=== PATIENT | male | born 1980 | race Caucasian/White ===

== ENCOUNTER → 2019-11-18 11:32 | Outpatient (CLI) | payer MEDICARE, OTHER, SELFPAY ==
--- NOTE | 2019-11-18 11:46 | XR_ITS ---
PROCEDURE: XR FOOT RT MIN 3V CLINICAL INDICATION: RT FOOT INJURY Posttraumatic pain COMPARISON: No exams were available for comparison FINDINGS: No fracture or dislocation. No lytic or blastic change. There is normal mineralization. The joint spaces are well-preserved. No significant degenerative/arthritic changes. No erosive changes evident. Other findings:Small sclerotic foci in the calcaneus consistent bone islands. Small 3 mm cystic area in the shaft of the 1st metatarsal nonspecific IMPRESSION: No acute findings. Dictated by: Adrián Vega MD 11/18/2019 12:32 Electronically signed by Adrián Vega MD in [place] 11/18/2019 12:32
== END ==
PROVIDERS: PCP Nurse Practitioner Family; Visit Provider Nurse Practitioner Family
DX: S99.921A Unspecified injury of right foot, initial encounter (principal)
CPT/HCPCS: 73630

== ENCOUNTER 2020-05-11 13:03 | Emergency (ER) | payer MEDICARE, OTHER, SELFPAY ==
[2020-05-11 13:04] VITALS: BP 150/90; PULSE 89; RESP 16; TEMP 37.1; O2SAT 98; BMI 34.5
--- NOTE | 2020-05-11 13:40 | [facility].EDGENADL ---
ED Disposition Clinical Impression: Laceration of right hand Qualifiers: Encounter type: initial encounter Foreign body presence: without foreign body Qualified Code(s): S61.411A - Laceration without foreign body of right hand, initial encounter Chest wall contusion Qualifiers: Encounter type: initial encounter Laterality: unspecified laterality Qualified Code(s): S20.219A - Contusion of unspecified front wall of thorax, initial encounter Abdominal wall contusion Qualifiers: Encounter type: initial encounter Qualified Code(s): S30.1XXA - Contusion of abdominal wall, initial encounter Disposition: Home, Self-Care Condition on Discharge: Good Instructions: DI for Laceration Repair Additional Instructions: May take bandage and splint off daily and wash wound with soap and water, reapply bandage and splint. Clindamycin as prescribed. Follow-up with orthopedics, Dr. Mcgowan, next week for laceration and for cystic changes and bones of hand. Call Thursday to make appointment. Follow-up with your primary care doctor for abnormal findings on CT scan of the abdomen. Additional instructions for HAND LACERATION: Clean the wound daily with soap and water. Avoid submerging the wound. No swimming.DO NOT USE any antibiotic ointment such as Neosporin, Polysporin, or triple antibiotic. This will delay healing. See your primary care physician or return to the [facility] in 10 days for suture removal. The [facility] is open1 PM to 9 PM 7 days a week. Return if any signs of infection including increasing pain, pus drainage, swelling, redness, red streaks, or fever. Prescriptions: clindamycin HCL [Clindamycin HCl 300mg Cap] 300 mg PO Q6 #28 cap Transmission Status: Received by [facility] Referrals: Bridgette Jorgensen APRN [Primary Care Provider] - - Critical Care Critical Care Time: No Attestation: On , the high probability of a clinically significant, sudden or life threatening deterioration of the following system(s) required my full and direct attention, intervention and personal management. The time I documented below is in addition to time spent performing reported procedures but includes the following listed in this critical care notation. Medical Decision Making - Agus Inquiry Pt receiving controlled substance: No Vital Signs: 05/11/20 13:04 05/11/20 16:56 Temperature 98.8 F 98 F Temperature Source Oral Oral Pulse Rate 78 Pulse Rate [Left Radial] 89 Respiratory Rate 16 16 Blood Pressure 123/74 Blood Pressure [Right Arm] 150/90 H Blood Pressure Mean [Right Arm] 110 Blood Pressure Position Sitting Blood Pressure Position [Right Arm] Sitting 02 Sat by Pulse Oximetry 98 Oxygen Delivery Method Room Air Room Air - Lab Data Lab results reviewed: Yes: I reviewed the patient's lab results. Lab Results 05/11/20 14:20: WBC 9.3, RBC 4.35 L, Hgb 13.6 L, Hct 40.4 L, MCV 93.0, MCH 31.2, MCHC 33.6, RDW 13.8, Plt Count 295, MPV 7.8, Neut % (Auto) 75.8, Lymph % (Auto) 12.3, [place] % (Auto) 8.5, Eos % (Auto) 3.1, Baso % (Auto) 0.4, Neut # (Auto) 7.1, Lymph # (Auto) 1.1, [place] # (Auto) 0.8, Eos # (Auto) 0.3, Baso # (Auto) 0.0 05/11/20 14:20: Sodium 139, Potassium 5.1, Chloride 102, Carbon Dioxide 29, Anion Gap 13.1, BUN 18, Creatinine 1.00, Estimated Creat Clear 123, Estimated GFR 83, Est GFR ( Amer) 100, Glucose 217 H, Calcium 9.3, Total Bilirubin 0.4, AST 49, ALT 43, Alkaline Phosphatase 132 H, Total Protein 7.2, Albumin 4.4, Globulin 2.8, Albumin/Globulin Ratio 1.6 05/11/20 15:30: Urine Color Yellow, Urine Appearance Clear, Urine pH 7.0, Ur Specific [place] 1.020, Urine Protein Negative, Urine Glucose (UA) 2+, Urine Ketones Negative, Urine Blood Negative, Urine Nitrate Negative, Urine Bilirubin Negative, Urine Urobilinogen 0.2, Ur Leukocyte Esterase Negative, Urine RBC None, Urine WBC None, Ur Squamous Epith Cells None, Urine Bacteria None Result diagrams: 05/11/20 14:20 08
--- NOTE | 2020-05-11 13:54 | CT_ITS ---
PROCEDURE: CT ABDOMEN PELVIS W CON CLINICAL INDICATION: trauma Blunt trauma with injury and pain, contusion/abrasion or hematoma following injury Left upper quadrant pain COMPARISON: No exams were available for comparison TECHNIQUE: IV Contrast: 50ml Optiray 350 Oral Contrast None Axial images obtained with sagittal and coronal reformats. All CT scans at the facility use one or more dose reduction, viz: automated exposure control, ma/kV adjustment per patient size (including targeted exams where dose is matched to indication, i.e. head), or iterative reconstruction technique. FINDINGS: There is severe levoscoliosis of the lumbar spine with a rotary component. No acute lower rib fracture is evident. The liver and spleen has an unremarkable appearance. The right adrenal gland is slightly enlarged containing a coarse calcification with the gland measuring 2 x 1.2 cm. Left adrenal gland is unremarkable. Nonobstructing 2 mm stone is noted in the upper pole of the left kidney. No hydronephrosis. No evidence of appendicitis. No intestinal obstruction or free air. No pelvic mass or abnormal fluid collection. No evidence of intra-abdominal hematoma. Severe lumbar scoliosis convex left with rotary component is noted with multilevel degenerative changes of the spine. There is 8 mm anterolisthesis of L5 on S1. No acute bony fractures are evident. 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 There is extensive increase in soft tissue density in the retroperitoneum beginning at the aortic hiatus and extending inferiorly to the lumbosacral junction. This is more pronounced on the left with some coarse calcification in the left retroperitoneum. This increased density somewhat obscures the posterior aspect of the aorta, inferior vena cava, and iliac vessels. This is centered more toward the left ileo psoas muscle on the left but does extend across the midline posterior to the aorta and inferior vena cava in the prevertebral soft tissues. Etiology is uncertain but could be inflammatory/infectious, or neoplastic. There are no previous exams available for comparison. This area measures approximately 8.3 by 6.9 cm AP and transverse at the level just superior to the iliac crest. IMPRESSION: 1. No acute fracture. 2. Severe lumbar scoliosis convex left with rotary component 3. Retroperitoneal soft tissue mass centrally and on the left with coarse calcification with the greatest involvement in the region of the ileo psoas muscle. Neoplasm such as retroperitoneal sarcoma would be considered and infectious or inflammatory process is also consideration. No bony destructive process however is evident. Please correlate with old studies if available. Dictated b Adrián Vega MD 05/11/2020 16:03 Adrián Vega MD in [place] 05/11/2020 16:03
--- NOTE | 2020-05-11 13:55 | XR_ITS ---
PROCEDURE: XR CHEST 2V CLINICAL HISTORY: injury Chest pain following injury COMPARISON: No exams were available for comparison FINDINGS: The cardiomediastinal silhouette and pulmonary vascularity are within normal limits. There is mild left apical pleural thickening nonspecific. No pneumothorax or other some acute anomaly. Severe lumbar scoliosis convex left with mild thoracic scoliosis convex right. No acute bony findings. IMPRESSION: No acute findings. Dictated b Adrián Vega MD 05/11/2020 15:19 Adrián Vega MD in [place] 05/11/2020 15:19
--- NOTE | 2020-05-11 13:55 | XR_ITS ---
PROCEDURE: XR HAND RT MIN 3V CLINICAL INDICATION: injury Posttraumatic pain COMPARISON: No exams were available for comparison FINDINGS: No obvious fracture or dislocation. There is a mixed sclerotic and lucent area involving the distal shaft of the 3rd metacarpal. This is nonspecific and could be due to an enchondroma. This area measures 2.4 cm in length. There is also a lucency at 5 mm involving the proximal and radial aspect of the middle phalanx of the 3rd finger. A small sclerotic focus involves the distal aspect of the radius along the ulnar margin IMPRESSION: 1. No acute fracture. 2. Mixed sclerotic and lucent lesion of the distal aspect of the 3rd metacarpal. This could be due to an enchondroma. Other etiologies not excluded 3. 5 mm cystic area proximal aspect of the middle phalanx of the 3rd digit 4. Recommend follow-up to confirm stability Dictated b Adrián Vega MD 05/11/2020 15:37 Adrián Vega MD in [place] 05/11/2020 15:37
[2020-05-11 14:31] LABS: Basophils % 0.4 % (0.1-2.0); Eosinophils # 0.3 K/mm3 (0.0-0.4); Eosinophils % 3.1 % (0.1-12.0); Hematocrit 40.4 % (42.0-52.0); Hemoglobin 13.6 g/dL (14.1-18.0); Lymphocytes # 1.1 K/mm3 (0.7-4.5); Lymphocytes % 12.3 % (10-50); Mean Corpuscular HGB Conc 33.6 g/dL (31.8-35.4); Mean Corpuscular Hemoglobin 31.2 pg (27.0-31.2); Mean Platelet Volume 7.8 fl (7.4-10.4); Monocytes # 0.8 K/mm3 (0.1-1.0); Monocytes % 8.5 % (1.7-9.3); Neutrophils # 7.1 K/mm3 (1.8-7.8); Neutrophils % 75.8 % (37.0-80.0); Platelet Count 295 K/mm3 (142-424); Red Blood Count 4.35 M/mm3 (4.60-6.20); Red Cell Distribution Width 13.8 % (11.5-17.5); White Blood Count 9.3 K/mm3 (4.8-10.8)
[2020-05-11 14:39] LABS: Alanine Aminotransferase 43 U/L (12-78); Albumin Level 4.4 g/dl (3.5-5.0); Albumin/Globulin Ratio 1.6 (1.1-1.8); Alkaline Phosphatase 132 U/L (38-126); Anion Gap 13.1 mEq/L (5-15); Aspartate Amino Transferase 49 U/L (17-59); Bilirubin,Total 0.4 mg/dl (0.2-1.3); Blood Urea Nitrogen 18 mg/dl (9-20); Calcium 9.3 mg/dl (8.4-10.2); Carbon Dioxide 29 mmol/L (22.0-30.0); Chloride 102 mmol/L (98-107); Creatinine Clearance Estimated 123 mL/min (50-200); Estimated Glomerular Filt Rate 83 ml/min (>60); GFR (African American) 100 ML/MIN (>60); Globulin 2.8 g/dL (1.3-3.2); Glucose 217 mg/dl (74-100); Potassium 5.1 mmoL/L (3.5-5.1); Sodium 139 mmol/L (136-145); Total Protein,Serum 7.2 g/dl (6.3-8.2)
[2020-05-11 15:46] LABS: Microscopic, Urine URINE MICROSCOPIC (MICROSCOPIC)
[2020-05-11 15:48] LABS: Appearance,Urine CLEAR (Clear); Bilirubin,Urine Negative (Negative); Blood, Urine Negative (Negative); Color,Urine YELLOW (Yellow); Glucose,Urine (UA) 2+ (Negative); Ketones,Urine Negative (Negative); Leukocyte Esterase,Urine Negative (Negative); Nitrate,Urine Negative (Negative); Protein,Urine Negative (Negative); Urobilinogen,Urine 0.2 EU/dl (0.2)
--- NOTE | 2020-05-11 16:55 | PC.NURSE ---
dsd applied to rt hand. finger splint applied to rt index finger
[2020-05-11 16:56] VITALS: BP 123/74; PULSE 78; RESP 16; TEMP 36.6; O2SAT 98
== END 2020-05-11 16:57 | disposition home or self-care (01) ==
PROVIDERS: Emergency Provider Emergency Medicine; PCP Nurse Practitioner Family
DX: S61.411A Laceration without foreign body of right hand, initial encounter (principal); S20.219A Contusion of unspecified front wall of thorax, initial encounter; W37.8XXA Explosion and rupture of other pressurized tire, pipe or hose, initial encounter; Y92.89 Other specified places as the place of occurrence of the external cause; I10 Essential (primary) hypertension; K21.9 Gastro-esophageal reflux disease without esophagitis; E78.5 Hyperlipidemia, unspecified; E04.9 Nontoxic goiter, unspecified; Z79.899 Other long term (current) drug therapy; Z88.0 Allergy status to penicillin; Z88.2 Allergy status to sulfonamides
CPT/HCPCS: 12002; 71046; 73130; 74177; 80053; 81001; 85025; 99283; Q9967

== ENCOUNTER → 2020-08-17 09:44 | Outpatient (CLI) | payer MEDICARE, OTHER, SELFPAY ==
--- NOTE | 2020-08-17 09:48 | XR_ITS ---
PROCEDURE: XR HAND RT MIN 3V CLINICAL INDICATION: RT hand pain COMPARISON: CR XR HAND RT MIN 3V from 05/11/2020 FINDINGS: No fracture or dislocation. No lytic or blastic change. There is normal mineralization. The joint spaces are well-preserved. No significant degenerative/arthritic changes. Again noted is the combined sclerotic and radiolucent lesion involving the distal shaft and head of the 3rd metacarpal. This could be an enchondroma, fibrous dysplasia is a possibility as well. There also is a small radiolucent cystic-appearing lesion at the base of the middle phalanx of the middle finger. The carpal bones appear intact. IMPRESSION: Stable curious sclerotic and radiolucent lesion 3rd metacarpal, no acute fracture seen Dictated by: Dr. Geoffrey Gordon MD 08/17/2020 10:23 Dr. Geoffrey Gordon MD in [place] 08/17/2020 10:23
== END ==
PROVIDERS: PCP Nurse Practitioner Family; Visit Provider Orthopaedic Surgery
DX: S61.411A Laceration without foreign body of right hand, initial encounter (principal)
CPT/HCPCS: 73130

== ENCOUNTER → 2021-01-11 08:31 | Outpatient (CLI) | payer MEDICARE, OTHER, SELFPAY ==
--- NOTE | 2021-01-11 08:36 | XR_ITS ---
PROCEDURE: XR HAND RT MIN 3V CLINICAL INDICATION: RT hand pain COMPARISON: CR XR HAND RT MIN 3V from 05/11/2020 CR XR HAND RT MIN 3V from 08/17/2020 FINDINGS: No acute fracture or dislocation. The joint spaces are well-preserved. No significant degenerative/arthritic changes. No erosive changes evident. Other findings:There has been no significant change in the mixed lytic and sclerotic lesion involving the distal and mid aspect of the 3rd metacarpal and no change in the cystic lesion involving the proximal aspect of the middle phalanx of the 3rd digit. Bone island is present involving the distal radius. IMPRESSION: No change with no acute finding. No change in the mixed sclerotic and lytic lesion of the 3rd metacarpal and the cystic lesion of the middle phalanx of the 3rd digit Dictated by: Adrián Vega MD 01/11/2021 09:09 Adrián Vega MD in [place] 01/11/2021 09:09
== END ==
PROVIDERS: PCP Nurse Practitioner Family; Visit Provider Orthopaedic Surgery
DX: D16.9 Benign neoplasm of bone and articular cartilage, unspecified (principal)
CPT/HCPCS: 73130

== ENCOUNTER → 2022-06-25 06:58 | Outpatient (CLI) | payer MEDICARE, OTHER, SELFPAY ==
[2022-06-25 19:04] LABS: Basophils # 0.1 K/mm3 (0-0.2); Basophils % 1.4 % (0.1-2.0); Eosinophils # 0.3 K/mm3 (0.0-0.4); Hematocrit 44.8 % (42.0-52.0); Hemoglobin 14.2 g/dL (14.1-18.0); Lymphocytes # 1.1 K/mm3 (0.7-4.5); Lymphocytes % 14.8 % (10-50); Mean Corpuscular HGB Conc 31.7 g/dL (31.8-35.4); Mean Corpuscular Hemoglobin 30.2 pg (27.0-31.2); Mean Corpuscular Volume 95.2 fl (80-94); Mean Platelet Volume 9.6 fl (7.4-10.4); Monocytes # 0.6 K/mm3 (0.1-1.0); Monocytes % 7.8 % (1.7-9.3); Neutrophils # 5.5 K/mm3 (1.8-7.8); Neutrophils % 71.9 % (37.0-80.0); Platelet Count 375 K/mm3 (142-424); Red Blood Count 4.71 M/mm3 (4.60-6.20); Red Cell Distribution Width 14.2 % (11.5-17.5); White Blood Count 7.7 K/mm3 (4.8-10.8)
[2022-06-25 19:17] LABS: Alanine Aminotransferase 27 U/L (12-78); Albumin Level 4.3 g/dl (3.5-5.0); Albumin/Globulin Ratio 1.7 (1.1-1.8); Alkaline Phosphatase 160 U/L (38-126); Anion Gap 18.7 mEq/L (5-15); Aspartate Amino Transferase 34 U/L (17-59); Bilirubin,Total 0.6 mg/dl (0.2-1.3); Blood Urea Nitrogen 18 mg/dl (9-20); Calcium 9.2 mg/dl (8.4-10.2); Carbon Dioxide 23 mmol/L (22.0-30.0); Chloride 104 mmol/L (98-107); Chol/HDL Ratio 4.4 (1-3.5); Cholesterol 118 mg/dl (140-200); Estimated Glomerular Filt Rate 106 ml/min (>60); GFR (African American) 128 ML/MIN (>60); Globulin 2.6 g/dL (1.3-3.2); Glucose 132 mg/dl (74-100); HDL Cholesterol 27 mg/dl (40-60); Potassium 4.7 mmoL/L (3.5-5.1); Sodium 141 mmol/L (136-145); Total Protein,Serum 6.9 g/dl (6.3-8.2); Triglycerides 123 mg/dl (30-150); VLDL Cholesterol 25 mg/dL (0-40)
[2022-06-25 19:28] LABS: Direct LDL Cholesterol 64.17 mg/dL (100-129)
[2022-06-25 19:30] LABS: Hemoglobin A1C 7.3 % (4.0-6.0)
[2022-06-25 19:47] LABS: Thyroid Stimulating Hormone 1.35 uIU/mL (0.465-4.68)
== END ==
PROVIDERS: PCP Family Medicine; Visit Provider Family Medicine
DX: E11.9 Type 2 diabetes mellitus without complications (principal); L60.3 Nail dystrophy; Z79.4 Long term (current) use of insulin
CPT/HCPCS: 80053; 80061; 83036; 84443; 85025

== ENCOUNTER → 2022-11-05 18:47 | Outpatient (CLI) | payer MEDICARE, OTHER, SELFPAY ==
[2022-11-05 22:07] LABS: Amphetamine/Metha Screen,Urine Negative ng/ml (<1000); Barbiturates Screen,Urine Negative ng/ml (<200)
[2022-11-05 22:08] LABS: Benzodiazepines Screen,Urine Negative ng/ml (<200); Microalbumin/Creatinine Ratio 24.3
[2022-11-05 22:09] LABS: Cannabinoid Screen,Urine Negative ng/ml (<50); Cocaine Screen,Urine Negative ng/ml (<300)
[2022-11-05 22:10] LABS: Methadone Screen,Urine Negative ng/ml (<300); Opiate Screen,Urine Negative ng/ml (<300)
[2022-11-05 22:11] LABS: Phencyclidine Screen,Urine Negative ng/ml (<25)
[2022-11-05 22:14] LABS: Creatinine,Urine Random 213 mg/dL (Not Estab.)
== END ==
PROVIDERS: PCP Family Medicine; Visit Provider Family Medicine
DX: E11.9 Type 2 diabetes mellitus without complications (principal); G89.29 Other chronic pain; Z79.4 Long term (current) use of insulin
CPT/HCPCS: 80305; 82043; 82570

== ENCOUNTER → 2023-05-06 09:55 | Outpatient (CLI) | payer MEDICARE, OTHER, SELFPAY ==
[2023-05-06 16:36] LABS: Basophils % 0.2 % (0.1-2.0); Eosinophils # 0.3 K/mm3 (0.0-0.4); Eosinophils % 3.8 % (0.1-12.0); Hematocrit 46.6 % (42.0-52.0); Hemoglobin 14.9 g/dL (14.1-18.0); Mean Corpuscular Hemoglobin 29.5 pg (27.0-31.2); Mean Corpuscular Volume 92.3 fl (80-94); Mean Platelet Volume 8.8 fl (7.4-10.4); Monocytes # 0.6 K/mm3 (0.1-1.0); Monocytes % 7.2 % (1.7-9.3); Neutrophils # 6.1 K/mm3 (1.8-7.8); Neutrophils % 76.8 % (37.0-80.0); Platelet Count 329 K/mm3 (142-424); Red Blood Count 5.05 M/mm3 (4.60-6.20); Red Cell Distribution Width 14.4 % (11.5-17.5)
[2023-05-06 16:49] LABS: Alanine Aminotransferase 22 U/L (12-78); Albumin Level 4.5 g/dl (3.5-5.0); Albumin/Globulin Ratio 1.8 (1.1-1.8); Alkaline Phosphatase 95 U/L (38-126); Aspartate Amino Transferase 23 U/L (17-59); Bilirubin,Total 0.4 mg/dl (0.2-1.3); Blood Urea Nitrogen 17 mg/dl (9-20); Calcium 9.7 mg/dl (8.4-10.2); Carbon Dioxide 29 mmol/L (22.0-30.0); Chloride 104 mmol/L (98-107); Chol/HDL Ratio 3.5 (1-3.5); Cholesterol 88 mg/dl (140-200); Estimated Glomerular Filt Rate 92 ml/min (>60); GFR (African American) 111 ML/MIN (>60); Globulin 2.5 g/dL (1.3-3.2); Glucose 127 mg/dl (74-100); HDL Cholesterol 25 mg/dl (40-60); Sodium 143 mmol/L (136-145); Triglycerides 101 mg/dl (30-150); VLDL Cholesterol 20 mg/dL (0-40)
[2023-05-06 17:00] LABS: Direct LDL Cholesterol 44.33 mg/dL (100-129)
[2023-05-06 17:19] LABS: Thyroid Stimulating Hormone 2.75 uIU/mL (0.465-4.68)
[2023-05-06 18:48] LABS: Hemoglobin A1C 6.7 % (4.0-6.0)
== END ==
PROVIDERS: PCP Family Medicine; Visit Provider Family Medicine
DX: E03.9 Hypothyroidism, unspecified (principal); E11.9 Type 2 diabetes mellitus without complications; E78.5 Hyperlipidemia, unspecified; G47.33 Obstructive sleep apnea (adult) (pediatric); I10 Essential (primary) hypertension; L60.3 Nail dystrophy; M41.9 Scoliosis, unspecified; Z85.858 Personal history of malignant neoplasm of other endocrine glands; I25.10 Atherosclerotic heart disease of native coronary artery without angina pectoris; Z79.4 Long term (current) use of insulin
CPT/HCPCS: 80053; 80061; 83036; 84443; 85025

== ENCOUNTER → 2023-05-27 11:26 | Outpatient (CLI) | payer MEDICARE, OTHER, SELFPAY ==
--- NOTE | 2023-05-27 11:30 | XR_ITS ---
FINAL REPORT CLINICAL HISTORY: left foot pain COMPARISON: 11/18/2019 FINDINGS: Left foot Three views were obtained. There is no acute fracture or dislocation. The joint spaces appear normal. There is an incidental lucency in the distal 1st metatarsal, stable since prior. No soft tissue abnormality is identified. IMPRESSION: No acute process. Reviewed, Interpreted and Dictated by Yasir Pruitt MD Transcribed by Latisha Melvin Authenticated and [facility]
== END ==
PROVIDERS: PCP Family Medicine; Visit Provider Family Medicine
DX: M79.672 Pain in left foot (principal)
CPT/HCPCS: 73630

== ENCOUNTER → 2023-09-08 23:13 | Outpatient (CLI) | payer MEDICARE, OTHER, SELFPAY ==
[2023-09-08 18:13] LABS: Hemoglobin A1C 6.6 % (4.0-6.0)
[2023-09-09 09:53] LABS: Creatinine,Urine Random 88 mg/dL (Not Estab.)
[2023-09-09 09:59] LABS: Chloride 103 mmol/L (98-107)
[2023-09-09 10:00] LABS: Sodium 140 mmol/L (136-145)
[2023-09-09 10:02] LABS: Blood Urea Nitrogen 19 mg/dl (9-20); Estimated Glomerular Filt Rate 106 ml/min (>60); GFR (African American) 128 ML/MIN (>60)
[2023-09-09 10:03] LABS: Alanine Aminotransferase 24 U/L (12-78); Albumin Level 4.8 g/dl (3.5-5.0); Albumin/Globulin Ratio 1.8 (1.1-1.8); Alkaline Phosphatase 85 U/L (38-126); Anion Gap 15.5 mEq/L (5-15); Aspartate Amino Transferase 24 U/L (17-59); Bilirubin,Total 0.5 mg/dl (0.2-1.3); Calcium 9.7 mg/dl (8.4-10.2); Carbon Dioxide 28 mmol/L (22.0-30.0); Chol/HDL Ratio 3.8 (1-3.5); Cholesterol 99 mg/dl (140-200); Globulin 2.7 g/dL (1.3-3.2); Glucose 211 mg/dl (74-100); HDL Cholesterol 26 mg/dl (40-60); Total Protein,Serum 7.5 g/dl (6.3-8.2); Triglycerides 88 mg/dl (30-150); VLDL Cholesterol 18 mg/dL (0-40)
[2023-09-09 10:17] LABS: Direct LDL Cholesterol 61.93 mg/dL (100-129)
[2023-09-09 10:21] LABS: Free T4 (Free Thyroxine) 1.35 ng/dl (0.78-2.19)
[2023-09-09 10:24] LABS: Microalbumin/Creatinine Ratio 13.4
[2023-09-09 10:28] LABS: Potassium 6.5 mmoL/L (3.5-5.1)
[2023-09-09 11:05] LABS: Thyroid Stimulating Hormone 1.99 uIU/mL (0.465-4.68)
== END ==
PROVIDERS: Nurse Practitioner Family; PCP Family Medicine; Visit Provider Family Medicine
DX: I10 Essential (primary) hypertension (principal); E11.9 Type 2 diabetes mellitus without complications; Z79.4 Long term (current) use of insulin
CPT/HCPCS: 80053; 80061; 82043; 82570; 83036; 84439; 84443

== ENCOUNTER → 2023-09-11 10:15 | Outpatient (CLI) | payer MEDICARE, OTHER, SELFPAY ==
[2023-09-11 11:03] LABS: Blood Urea Nitrogen 16 mg/dl (9-20); Carbon Dioxide 27 mmol/L (22.0-30.0); Chloride 107 mmol/L (98-107); Estimated Glomerular Filt Rate 106 ml/min (>60); GFR (African American) 128 ML/MIN (>60); Sodium 141 mmol/L (136-145)
[2023-09-11 11:14] LABS: Glucose 50 mg/dl (74-100)
== END ==
PROVIDERS: PCP Family Medicine; Visit Provider Family Medicine
DX: E87.5 Hyperkalemia (principal)
CPT/HCPCS: 36415; 80048

== ENCOUNTER 2024-01-07 21:20 | Outpatient (CLI) | payer MEDICARE, OTHER, SELFPAY ==
[2024-01-07 16:31] LABS: Basophils # 0.1 K/mm3 (0-0.2); Basophils % 0.6 % (0.1-2.0); Eosinophils # 0.3 K/mm3 (0.0-0.4); Eosinophils % 3.6 % (0.1-12.0); Hematocrit 47.3 % (42.0-52.0); Hemoglobin 14.9 g/dL (14.1-18.0); Lymphocytes % 13.1 % (10-50); Mean Corpuscular HGB Conc 31.5 g/dL (31.8-35.4); Mean Corpuscular Hemoglobin 30.9 pg (27.0-31.2); Mean Platelet Volume 9.2 fl (7.4-10.4); Monocytes # 0.6 K/mm3 (0.1-1.0); Monocytes % 7.5 % (1.7-9.3); Neutrophils # 5.9 K/mm3 (1.8-7.8); Neutrophils % 75.2 % (37.0-80.0); Platelet Count 294 K/mm3 (142-424); Red Blood Count 4.82 M/mm3 (4.60-6.20); White Blood Count 7.8 K/mm3 (4.8-10.8)
[2024-01-07 16:50] LABS: Alanine Aminotransferase 27 U/L (12-78); Albumin Level 4.9 g/dl (3.5-5.0); Alkaline Phosphatase 98 U/L (38-126); Anion Gap 15.3 mEq/L (5-15); Aspartate Amino Transferase 24 U/L (17-59); Bilirubin,Total 0.5 mg/dl (0.2-1.3); Blood Urea Nitrogen 18 mg/dl (9-20); Calcium 10.1 mg/dl (8.4-10.2); Carbon Dioxide 25 mmol/L (22.0-30.0); Chloride 107 mmol/L (98-107); Chol/HDL Ratio 3.9 (1-3.5); Cholesterol 113 mg/dl (140-200); Estimated Glomerular Filt Rate 105 ml/min (>60); GFR (African American) 127 ML/MIN (>60); Globulin 2.5 g/dL (1.3-3.2); Glucose 155 mg/dl (74-100); HDL Cholesterol 29 mg/dl (40-60); Potassium 4.3 mmoL/L (3.5-5.1); Sodium 143 mmol/L (136-145); Total Protein,Serum 7.4 g/dl (6.3-8.2); Triglycerides 93 mg/dl (30-150); VLDL Cholesterol 19 mg/dL (0-40)
[2024-01-07 17:00] LABS: Direct LDL Cholesterol 62.18 mg/dL (100-129)
[2024-01-07 17:20] LABS: Thyroid Stimulating Hormone 3.43 uIU/mL (0.465-4.68)
== END 2024-01-07 23:59 ==
LOC: LAB.DROPOF 21:21
PROVIDERS: PCP Family Medicine; Visit Provider Family Medicine
DX: E11.9 Type 2 diabetes mellitus without complications (principal); I10 Essential (primary) hypertension; Z79.4 Long term (current) use of insulin; Z79.84 Long term (current) use of oral hypoglycemic drugs
CPT/HCPCS: 80053; 80061; 83036; 84443; 85025

== ENCOUNTER 2024-08-11 09:22 | Outpatient (CLI) | payer MEDICARE, OTHER, SELFPAY ==
[2024-08-11 16:20] LABS: Basophils % 0.6 % (0.1-2.0); Eosinophils # 0.3 K/mm3 (0.0-0.4); Eosinophils % 3.8 % (0.1-12.0); Hematocrit 48.1 % (42.0-52.0); Hemoglobin 16.3 g/dL (14.1-18.0); Lymphocytes # 1.1 K/mm3 (0.7-4.5); Mean Corpuscular HGB Conc 33.8 g/dL (31.8-35.4); Mean Corpuscular Hemoglobin 31.3 pg (27.0-31.2); Mean Corpuscular Volume 92.6 fl (80-94); Mean Platelet Volume 8.8 fl (7.4-10.4); Monocytes # 0.6 K/mm3 (0.1-1.0); Monocytes % 7.4 % (1.7-9.3); Neutrophils # 5.6 K/mm3 (1.8-7.8); Neutrophils % 73.2 % (37.0-80.0); Platelet Count 297 K/mm3 (142-424); Red Cell Distribution Width 13.9 % (11.5-17.5); White Blood Count 7.6 K/mm3 (4.8-10.8)
[2024-08-11 16:44] LABS: Alanine Aminotransferase 18 U/L (12-78); Albumin Level 4.9 g/dl (3.5-5.0); Alkaline Phosphatase 67 U/L (38-126); Anion Gap 18.1 mEq/L (5-15); Aspartate Amino Transferase 32 U/L (17-59); Bilirubin,Total 0.8 mg/dl (0.2-1.3); Blood Urea Nitrogen 19 mg/dl (9-20); Calcium 9.5 mg/dl (8.4-10.2); Carbon Dioxide 24 mmol/L (22.0-30.0); Chloride 105 mmol/L (98-107); Chol/HDL Ratio 3.3 (1-3.5); Cholesterol 91 mg/dl (140-200); Estimated Glomerular Filt Rate 105 ml/min (>60); GFR (African American) 127 ML/MIN (>60); Globulin 2.5 g/dL (1.3-3.2); Glucose 69 mg/dl (74-100); HDL Cholesterol 28 mg/dl (40-60); Potassium 5.1 mmoL/L (3.5-5.1); Sodium 142 mmol/L (136-145); Total Protein,Serum 7.4 g/dl (6.3-8.2); Triglycerides 113 mg/dl (30-150); VLDL Cholesterol 23 mg/dL (0-40)
[2024-08-11 16:55] LABS: Direct LDL Cholesterol 45.93 mg/dL (100-129)
[2024-08-11 17:04] LABS: Hemoglobin A1C 6.4 % (4.0-6.0)
[2024-08-11 17:14] LABS: Thyroid Stimulating Hormone 1.76 uIU/mL (0.465-4.68)
[2024-08-11 19:01] LABS: HIV (1&2) Antibody Rapid NONREACTIVE (NONREACTIVE)
[2024-08-13 08:22] LABS: HCV Ab Non Reactive (Non Reactive)
== END 2024-08-11 23:59 | disposition home or self-care (01) ==
LOC: LAB.DROPOF 08-12 08:13
PROVIDERS: PCP Family Medicine; Visit Provider Family Medicine
DX: E03.9 Hypothyroidism, unspecified (principal); Z11.4 Encounter for screening for human immunodeficiency virus [HIV]; I10 Essential (primary) hypertension; E78.5 Hyperlipidemia, unspecified; E11.9 Type 2 diabetes mellitus without complications; Z11.59 Encounter for screening for other viral diseases
CPT/HCPCS: 80053; 80061; 83036; 84443; 85025; 86803; 87389

== ENCOUNTER 2024-12-07 09:08 | Outpatient (CLI) | payer MEDICARE, OTHER, SELFPAY ==
[2024-12-07 22:20] LABS: Microalbumin/Creatinine Ratio 10.9
[2024-12-07 22:21] LABS: Creatinine,Urine Random 61 mg/dL (Not Estab.)
== END 2024-12-07 23:59 | disposition home or self-care (01) ==
LOC: LAB.DROPOF 12-08 13:40
PROVIDERS: PCP Family Medicine; Visit Provider Family Medicine
DX: E11.9 Type 2 diabetes mellitus without complications (principal)
CPT/HCPCS: 82043; 82570

== ENCOUNTER 2025-02-10 09:30 | Outpatient (CLI) | payer MEDICARE, OTHER, SELFPAY ==
[2025-02-10 17:08] LABS: Basophils # 0.1 K/mm3 (0-0.2); Basophils % 0.8 % (0.1-2.0); Eosinophils # 0.2 Kmm3 (0.0-0.4); Eosinophils % 2.9 % (0.1-12.0); Hematocrit 45.6 % (42.0-52.0); Hemoglobin 15.3 g/dL (14.1-18.0); Immature Granulocytes # 0.02 10^3uL; Immature Granulocytes % 0.3 %; Lymphocytes # 0.9 K/mm3 (0.7-4.5); Lymphocytes % 13.2 % (10-50); Mean Corpuscular HGB Conc 33.6 g/dL (31.8-35.4); Mean Corpuscular Hemoglobin 31.2 pg (27.0-31.2); Mean Corpuscular Volume 93.1 fl (80-94); Mean Platelet Volume 10.4 fl (7.4-10.4); Monocytes # 0.6 K/mm3 (0.1-1.0); Monocytes % 9.3 % (1.7-9.3); Neutrophils # 4.9 K/mm3 (1.8-7.8); Neutrophils % 73.5 % (37.0-80.0); Nucleated Red Blood Cells # 0 10^3/uL; Nucleated Red Blood Cells % 0 %; Platelet Count 301 K/mm3 (142-424); Red Cell Distribution Width 13.8 % (11.5-17.5); Red Cell Distribution Width-SD 47.4 fL; White Blood Count 6.7 K/mm3 (4.8-10.8)
[2025-02-10 17:24] LABS: Albumin Level 4.9 g/dl (3.5-5.0); Chloride 106 mmol/L (98-107); Potassium 5.1 mmoL/L (3.5-5.1); Sodium 141 mmol/L (136-145)
[2025-02-10 17:27] LABS: Alanine Aminotransferase 21 U/L (12-78); Albumin/Globulin Ratio 2.1 (1.1-1.8); Alkaline Phosphatase 73 U/L (38-126); Anion Gap 13.1 mEq/L (5-15); Aspartate Amino Transferase 21 U/L (17-59); Bilirubin,Total 0.5 mg/dl (0.2-1.3); Blood Urea Nitrogen 21 mg/dl (9-20); Carbon Dioxide 27 mmol/L (22.0-30.0); Cholesterol 96 mg/dl (140-200); Estimated Glomerular Filt Rate 91 ml/min (>60); GFR (African American) 110 ML/MIN (>60); Globulin 2.3 g/dL (1.3-3.2); Total Protein,Serum 7.2 g/dl (6.3-8.2); Triglycerides 150 mg/dl (30-150); VLDL Cholesterol 30 mg/dL (0-40)
[2025-02-10 17:28] LABS: Calcium 9.7 mg/dl (8.4-10.2); Chol/HDL Ratio 2.8 (1-3.5); Glucose 95 mg/dl (74-100); HDL Cholesterol 34 mg/dl (40-60)
[2025-02-10 17:29] LABS: Microalbumin < 6.000 mg/L (0-16.7)
[2025-02-10 17:30] LABS: Creatinine,Urine Random 52 mg/dL (Not Estab.)
[2025-02-10 17:38] LABS: Hemoglobin A1C 6.5 % (4.0-6.0)
[2025-02-10 17:39] LABS: Direct LDL Cholesterol 41.15 mg/dL (100-129)
[2025-02-10 17:58] LABS: Thyroid Stimulating Hormone 1.65 uIU/mL (0.465-4.68)
--- OUTSIDE RECORDS SUMMARY | 2025-02-13 10:52 | XMS_ITS | Data Portability ---
Author Organization [facility] Address [address] [place] [address] Care Team Providers Care Aerospace Assembler Name Role Phone SOUTH CARVAJAL Primary Care Provider Assessment No assessment recorded. Plan of Treatment Reminders Order Date Submit Date Provider Last Modified By Organization Details Last Modified Time Details Appointments None recorded. Lab O&P (ova & parasites), stool 2022 023 4 [facility] (Lab Registration) , [address] [place] [address] [place], [address], 3 09:28:08 culture, stool 2022 023 [email or web address] 4 [facility] (Lab Registration) , [address] [place] [address] [place], [address], 3 09:28:08 gastrointes tinal pathogens panel, PCR, stool 2022 023 [email or web address] 4 [facility] (Lab Registration) , [address] [place] [address] [place], [address], 3 09:28:08 Referral None recorded. Procedures colonoscopy procedure (PROC) 2022 023 [email or web address] 4 Not available 3 09:28:02 upper endoscopy procedure (EGD) (PROC) 2022 023 [email or web address] 2 Not available 3 08:46:13 upper endoscopy procedure (EGD) (PROC) 2022 023 [email or web address] 2 Not available 08:46:13 Surgeries None recorded. Imaging None recorded. Medication Orders Miralax 17 gram/dose oral powder 2022 023 [email or web address] [facility], [address] [place], [address], 15:53:04 Dulcolax (bisacodyl) 5 mg tablet,tereso yed release 2022 023 [email or web address] [place], [address] [place], [address], 22:16:13 Patient TargetsNo targets recorded. Patient InstructionsNo instructions recorded. Reason for Referral None Reported. Results Created Date Observation Date Name Description Value Unit Range Abnormal Flag Note LastModifiedBy Organization Detail LastModifiedTime 01/14/20 23 01/13/2023 GASTR OINTE ANEUDY L PANEL BY PCR specimen consistency NON-FO RMED STL Not Available [facility] (Lab Registration) [address] [place], [address], 01/13/2023 14:59:26 01/14/20 23 01/13/2023 GASTR OINTE ANEUDY L PANEL BY PCR campylobacte r NOT DETECT ED not detect ed Not Available [facility] (Lab Registration) [address] [place], [address], 01/13/2023 14:59:26 01/14/20 23 01/13/2023 GASTR OINTE ANEUDY L PANEL BY PCR clostridium diff. toxin A/B NOT DETECT ED not detect ed Not Available [facility] (Lab Registration) [address] [place], [address], 01/13/2023 14:59:26 01/14/20 23 01/13/2023 GASTR OINTE ANEUDY L PANEL BY PCR plesiomonas shigelloides NOT DETECT ED not detect ed Not Available [facility] (Lab Registration) [address], [place], [address], 01/13/2023 14:59:26 01/14/20 23 01/13/2023 GASTR OINTE ANEUDY L PANEL BY PCR salmonella NOT DETECT ED not detect ed Not Available [facility] (Lab Registration) [address], [place], [address], 01/13/2023 14:59:26 01/14/20 23 01/13/2023 GASTR OINTE ANEUDY L PANEL BY PCR vibrio NOT DETECT ED not detect ed Not Available [facility] (Lab Registration) [address], [place], [address], 01/13/2023 14:59:26 01/14/20 23 01/13/2023 GASTR OINTE ANEUDY L PANEL BY PCR vibrio cholerae NOT DETECT ED not detect ed Not Available [facility] (Lab Registration) [address], [place], [address], 01/13/2023 14:59:26 01/14/20 23 01/13/2023 GASTR OINTE ANEUDY L PANEL BY PCR yersinia enterocoliti ca NOT DETECT ED not detect ed Not Available [facility] (Lab Registration) [address], [place], [address], 01/13/2023 14:59:26 01/14/20 23 01/13/2023 GASTR OINTE ANEUDY L PANEL BY PCR enteroaggreg ative E. coli NOT DETECT ED not detect ed Not Available [facility] (Lab Registration) [address] [place], [address], 01/13/2023 14:59:26 01/14/20 23 01/13/2023 GASTR OINTE ANEUDY L PANEL BY PCR enteropathog enic E. coli NOT DETECT ED not detect ed Not Available [facility] (Lab Registration) [address] [place], [address], 01/13/2023 14:59:26 01/14/20 23 01/13/2023 GASTR OINTE ANEUDY L PANEL BY PCR enterotoxige brenda E. coli NOT DETECT ED not detect ed Not Available [facility] (Lab Registration) [address], [place], [address], 01/13/2023 14:59:26 01/14/20 23 01/13/2023 GASTR OINTE ANEUDY L PANEL BY PCR shiga-like toxin-produc E coli NOT DETECT ED not detect ed Not Available [facility] (Lab Registration) [address], [place], [address], 01/13/2023 14:59:26 01/14/20 23 01/13/2023 GASTR OINTE ANEUDY L PANEL BY PCR E. coli 0157 NOT DETECT ED not detect ed Not Available [facility] (Lab Registration) [address], [place], [address], 01/13/2023 14:59:26 01/14/20 23 01/13/2023 GASTR OINTE ANEUDY L PANEL BY PCR shigella/ent eroinvasive E coli NOT DETECT ED not detect ed Not Available [facility] (Lab Registration) [address], [place], [address], 01/13/2023 14:59:26 01/14/20 23 01/13/2023 GASTR OINTE ANEUDY L PANEL BY PCR cryptosporid ium NOT DETECT ED not detect ed Not Available [facility] (Lab Registration) [address] [place], [address], 01/13/2023 14:59:26 01/14/20 23 01/13/2023 GASTR OINTE ANEUDY L PANEL BY PCR cyclospora cayetanensis NOT DETECT ED not detect ed Not Available [facility] (Lab Registration) [address], [place], [address], 01/13/2023 14:59:26 01/14/20 23 01/13/2023 GASTR OINTE ANEUDY L PANEL BY PCR entamoeba histolytica NOT DETECT ED not detect ed Not Available [facility] (Lab Registration) [address], [place], [address], 01/13/2023 14:59:26 01/14/20 23 01/13/2023 GASTR OINTE ANEUDY L PANEL BY PCR giardia lamblia NOT DETECT ED not detect ed Not Available [facility] (Lab Registration) [address] [place], [address], 01/13/2023 14:59:26 01/14/20 23 01/13/2023 GASTR OINTE ANEUDY L PANEL BY PCR adenovirus F 40/41 NOT DETECT ED not detect ed Not Available [facility] (Lab Registration) [address], [place], [address], 01/13/2023 14:59:26 01/14/20 23 01/13/2023 GASTR OINTE ANEUDY L PANEL BY PCR astrovirus NOT DETECT ED not detect ed Not Available [facility] (Lab Registration) [address] [place], [address], 01/13/2023 14:59:26 01/14/20 23 01/13/2023 GASTR OINTE ANEUDY L PANEL BY PCR norovirus GI/gii NOT DETECT ED not detect ed Not Available [facility] (Lab Registration) [address] [place], [address], 01/13/2023 14:59:26 01/14/20 23 01/13/2023 GASTR OINTE ANEUDY L PANEL BY PCR rotavirus A NOT DETECT ED not detect ed Not Available [facility] (Lab Registration) [address] [place], [address], 01/13/2023 14:59:26 01/14/20 23 01/13/2023 GASTR OINTE ANEUDY L PANEL BY PCR sapovirus NOT DETECT ED not detect ed Not Available [facility] (Lab Registration) [address] [place], [address], 01/13/2023 14:59:26 01/14/20 23 01/13/2023 GASTR OINTE ANEUDY L PANEL BY PCR note Unles s other sloan noted testi ng perfo rmed at: [facility] [address] [place] [address] [phone] Ho estrada MD CLIA: [id number] Not Available [facility] (Lab Registration) [address], [place], [address], 01/13/2023 14:59:26 01/14/20 23 01/13/2023 CULTU RE STOOL results LT 01-15 737 No Salmo tarun , Shige lla,E evelyne ichia coli O157: H7, Yersi sapna, or Campy lobac ter [place] vanessa at Day 2 LT 01-16 655 No Salmo tarun , Shige lla, Esche rustam a coli O157: H7 Yersi sapna, or Campy lobac ter [place] vanessa a Day 3 Not Available [facility] (Lab Registration) [address], [place], [address], 01/16/2023 06:58:06 01/14/20 23 01/13/2023 CULTU RE STOOL note Unles s other sloan noted testi ng perfo rmed at: [facility] [address] [place] [address] [phone] Ho estrada MD CLIA: [id number] Not Available [facility] (Lab Registration) [address], [place], [address], 01/16/2023 06:58:06 01/14/20 23 01/13/2023 O+P SMEAR CONC ID note Unles s other sloan noted testi ng perfo rmed at: [facility] [address] [place] [address] [phone] Ho estrada MD CLIA: [id number] Not Available [facility] (Lab Registration) [address] [place], [address], 01/19/2023 18:10:04 01/14/20 23 01/19/2023 O+P SMEAR CONC ID ova + parasite exam Final report These resul ts were obtai marija using wet prepa ratio n(s) and trich kylie stain ed smear . This test does not inclu de testi ng for Crypt ospor idium parvu m, Cyclo spora , or Micro spori mahin. SENT TO REFER ENCE LAB Not Available [facility] (Lab Registration) [address] [place], [address], 01/19/2023 18:10:04 01/14/20 23 01/19/2023 O+P SMEAR CONC ID result 1 Commen t No ova, cysts , or kenneth ites seen. . One negat chandra speci men does not rule out the possi bilit y of a kenneth itic infec tion. Perfo [place]med [place]: [place] [address] [id number] Lab Direc tor: Chris doherty PhD, Phone : [phone] SENT TO REFER ENCE LAB Not Available [facility] (Lab Registration) [address] [place], [address], 01/19/2023 18:10:04 Result Notes None recorded. Problems Name Problem SNOMED Code Status Onset Date Resolution Date Notes Provider Name and Address Organization Details Recorded Time Depressive disorder 75113971 Active 2022 Radha abdullahi, [place] - [facility] - [facility] & [place] 3 14:19:15 Diabetes mellitus 81571315 Active 2022 Radha Singh null, [place] - [facility] - [facility] & [place] 3 14:19:22 Hyperlipidemia 50757130 Active 2022 Radha abdullahi, [place] - [facility] - [facility] & [place] 3 14:19:28 Hypertensive disorder 19498465 Active 2022 Radha abdullahi, [place] - [facility] - [facility] & [place] 3 14:19:32 Coronary arterioscleros is 62781477 Active 2022 Radha abdullahi, [place] - [facility] - [facility] & [place] 3 14:19:37 Migraine 10517065 Active 2022 Radha abdullahi, [place] - [facility] - [facility] & [place] 3 14:19:46 Altered bowel function 12787274 Active 2022 Claribel Price NP [address], [address], [place], [address], [place] - [facility] - [place] & [place] 3 22:24:13 Diarrhea of presumed infectious origin 30618381 Active 2022 Claribel Price NP [address], [address], [place], [address], [place] - [facility] - [facility] & [place] 3 22:24:13 Right upper quadrant pain 090715508 Active 2022 Claribel Price NP [address], [address], [place], [address], [place] [facility] - [place] & [place] 3 22:24:13 Gastroesophage al reflux disease 188114253 Active 2022 Claribel Price NP [address], [address], [place], [address], [place] - [facility] - [place] & [place] 3 22:24:13 Problem Notes None recorded. Procedures Surgical History Date Name Laterality Status Provider Name and Address Organization Details Recorded Time 08/05/20 12 cardiac catheterization completed Radha ABDUL - [facility] - [facility] & [place] 12/24/2022 14:24:24 Imaging Results None recorded. Procedure Notes None recorded. Medical Equipment None Reported. Allergies Allergen ID Allergen Name Allergen Category Reaction Reaction Severity Criticality Documentation Date Start Date Code Code System Note Provider Name and Address Organization Details Recorded Time 27351 Bactrim medicatio n hives Not available Not available 12/24/2022 52859 9 RxNorm Radha abdullahi, [place] - [facility] - [facility] & [place] 3 14:22:52 97993 erythromy frances medicatio n rash Not available Not available 12/24/2022 4053 RxNorm FRANKO Rodriguez [facility] & [place] 3 14:23:12 40609 Product containin g penicilli n (product) medicatio n hives Not available Not available 12/24/2022 52877 8001 SNOMED FRANKO Rodriguez [facility] & [place] 3 14:23:26 03565 amoxicill in medicatio n Not available Not available Not available 12/24/2022 723 RxNorm Radha abdullahi, FRAN[place] - [place] & [place] 3 14:23:32 Medications Name Sig Start Date Stop Date Status Note LastModified by Organization Details LastModified Time truetrack strips 50 eaches TEST FOUR TIMES DAILY & NEEDED DIRECTED active Not Available Not Available No t Available cyclobenzaprin e 10 mg tablet TAKE 1 TABLET BY MOUTH THREE TIMES DAILY active Not Available Not Available No t Available atorvastatin 40 mg tablet TAKE 1 TABLET BY MOUTH ONCE DAILY active Not Available Not Available No t Available lisinopril 20 mg-hydrochloro thiazide 12.5 mg tablet TAKE 1 TABLET BY MOUTH EVERY DAY active Not Available Not Available No t Available metoprolol tartrate 100 mg tablet active Not Available Not Available No t Available metoprolol succinate ER 100 mg tablet,extende d release 24 hr active Not Available Not Available Not Available tramadol 50 mg tablet TAKE 1 TABLET BY MOUTH EVERY 4 TO 6 HOURS NEEDED FOR PAIN active Not Available Not Available No t Available amlodipine 10 mg tablet TAKE 1 TABLET BY MOUTH ONCE DAILY active Not Available Not Available No t Available levothyroxine 50 mcg tablet active Not Available Not Availabl e Not Available pantoprazole 40 mg tablet,delayed release TAKE 1 TABLET BY MOUTH ONCE DAILY active Not Available Not Available No t Available insulin syringe U-100 with needle 1 mL 31 gauge x 516 active Not Available Not Available Not Available polyethylene glycol 3350 17 gram/dose oral powder Take 17 g as needed by oral route for 2 days. active Not Available Not Available No t Available metformin ER 500 mg tablet,extende d release 24 hr active Not Available Not Available Not Available naproxen 500 mg tablet active Not Available Not Available No t Available Dulcolax (bisacodyl) 5 mg tablet,delayed release Take 2 tablets every day by oral route for 1 day. 2022 active Not Available Not Available Not Avai lable insulin lispro (U-100) 100 unit/mL subcutaneous pen active Not Available Not Available Not Available Novolog FlexPen U-100 Insulin aspart 100 unit/mL (3 mL) subcutaneous active Not Available Not Available Not Available BD Ultra-Fine Mini Pen Needle 31 gauge x 3/16 USE 3 PER DAY FOR NOVOLOG PENS active Not Available Not Available No t Available Levemir U-100 Insulin 100 unit/mL subcutaneous solution active Not Available Not Available Not Available fenofibrate 54 mg tablet TAKE 1 TABLET BY MOUTH DAILY WITH A MEAL active Not Available Not Available No t Available Easy Comfort Lancets 30 gauge USE DIRECTED TO TEST BLOOD SUGAR LEVEL 4 TIMES PER DAY active Not Available Not Available No t Available True Metrix Glucose Test Strip active Not Available Not Available Not Available Entresto 49 mg-51 mg tablet active Not Available Not Available Not Available FreeStyle Lori 2 Sensor kit active Not Available Not Available Not Available FreeStyle Lori 2 [place]hen[place] active Not Available Not Availab le Not Available Vitals Date Recorded Body height Body mass index (BMI) Body weight Body temperature Oxygen saturation Oxygen saturation in Arterial blood by Pulse oximetry Heart rate Provider Name and Address Organization Details Last Updated DateTime 3 160.02 cm 32.6 kg/m2 78192 g 97.7 [degF] 97 % 97 % 95 /min Radha Samantha [facility] & [place] 3 14:17:07 Social History None recorded. Functional Status None recorded. Mental Status None recorded. Family History Relationship Description Onset Age of this Age Resolved Age Notes LastModified by Organization Details LastModified Time Mother Disorder of endocrine system pt. added direct ly (12/23) [email or web address] Not available 12/23/2022 12:55:23 Mother Hypertensive disorder pt. added direct ly (12/23) [email or web address] Not available 12/23/2022 12:56:57 Mother Gastroesopha geal reflux disease pt. added direct ly (12/23) [email or web address]-13 Not available 12/23/2022 12:58:24 Father Disorder of endocrine system pt. added direct ly (12/23) [email or web address]-13 Not available 12/23/2022 12:55:23 Father Myocardial infarction pt. added direct ly (12/23) [email or web address]-13 Not available 12/23/2022 12:55:49 Father Heart disease pt. added direct ly (12/23) [email or web address]-13 Not available 12/23/2022 12:56:17 Father Hypertensive disorder pt. added direct ly (12/23) API-13 Not available 12/23/2022 12:56:57 Father Sleep disorder pt. added direct ly (12/23) API-13 Not available 12/23/2022 12:57:17 Father Gastroesopha geal reflux disease pt. added direct ly (12/23) API-13 Not available 12/23/2022 12:58:24 Father Kidney disease pt. added direct ly (12/23) API-13 Not available 12/23/2022 12:58:37 Sister Disorder of endocrine system pt. added direct ly (12/23) API-13 Not available 12/23/2022 12:55:23 Sister Chronic obstructive pulmonary disease pt. added direct ly (12/23) API-13 Not available 12/23/2022 12:56:01 Sister Hypertensive disorder pt. added direct ly (12/23) API-13 Not available 12/23/2022 12:56:57 Sister Sleep disorder pt. added direct ly (12/23) API-13 Not available 12/23/2022 12:57:17 Sister Headache pt. added direct ly (12/23) API-13 Not available 12/23/2022 12:58:05 Sister Gastroesopha geal reflux disease pt. added direct ly (12/23) API-13 Not available 12/23/2022 12:58:24 Sister Disorder of thyroid gland pt. added direct ly (12/23) API-13 Not available 12/23/2022 12:59:24 Paternal Aunt Disorder of endocrine system pt. added direct ly (12/23) API-13 Not available 12/23/2022 12:55:23 Paternal Aunt Hypertensive disorder pt. added direct ly (12/23) API-13 Not available 12/23/2022 12:56:57 Maternal Aunt Disorder of endocrine system pt. added direct ly (12/23) API-13 Not available 12/23/2022 12:55:23 Maternal Aunt Hypertensive disorder pt. added direct ly (12/23) API-13 Not available 12/23/2022 12:56:57 Maternal Uncle Disorder of endocrine system pt. added direct ly (12/23) API-13 Not available 12/23/2022 12:55:23 Maternal Uncle Hypertensive disorder pt. added direct ly (12/23) API-13 Not available 12/23/2022 12:56:57 Maternal Grandmother Disorder of endocrine system pt. added direct ly (12/23) API-13 Not available 12/23/2022 12:55:23 Maternal Grandmother Myocardial infarction pt. added direct ly (12/23) API-13 Not available 12/23/2022 12:55:49 Maternal Grandmother Hypertensive disorder pt. added direct ly (12/23) API-13 Not available 12/23/2022 12:56:57 Maternal Grandmother Cerebrovascu lar accident pt. added direct ly (12/23) API-13 Not available 12/23/2022 12:57:54 Paternal Grandmother Heart disease pt. added direct ly (12/23) API-13 Not available 12/23/2022 12:56:17 Paternal Grandmother Hypertensive disorder pt. added direct ly (12/23) API-13 Not available 12/23/2022 12:56:57 Brother Hypertensive disorder pt. added direct ly (12/23) API-13 Not available 12/23/2022 12:56:57 Maternal Grandfather Hypertensive disorder pt. added direct ly (12/23) API-13 Not available 12/23/2022 12:56:57 Paternal Grandfather Hypertensive disorder pt. added direct ly (12/23) API-13 Not available 12/23/2022 12:56:57 Paternal Uncle Hypertensive disorder pt. added direct ly (12/23) API-13 Not available 12/23/2022 12:56:57 Medical History Condition Response Diabetes Y Hyperlipidemia Y Depression Y Past Encounters Encounter ID Performer Location Encounter Start Date Encounter Closed Date Diagnosis/Indication Diagnosis SNOMED-CT Code Diagnosis ICD10 Code Diagnosis Note [id number] Claribel Price NP [facility] [address] [place] [address] 12/24/2022 13:45:39 01/02/2023 13:00:26 Diarrhea of presumed infectious origin 61907214 A09 3 month history of diarrhea averaging 2-3 bowel movements per day with urgency and episodes of black stool. Recommend stool studies to further evaluate. Altered lydia wel function 46771379 R19.4 Three month history of diarrhea, prior to this reports formed bowel movements daily. Recommend colonoscop y to further evaluate as well as stool studies. Patient will need cardiac clearance, Dr. Elena, prior to scheduling . Gastroesop hageal reflux disease 192319179 K21.9 Continues pantoprazo le 40 mg daily with occasional uncontroll ed symptoms. Recommend EGD to further evaluate. Right uppe r quadrant pain 567381524 R10.11 Episodes of right upper quadrant abdominal pain. Plan for EGD to rule out H pylori, gastritis, PUD, other. Health Concerns Section Related Observation LastModified by Organization Detai ls LastModified Time None Recorded Concern Status LastModified by Organization Details LastModified Time None Recorded Advance Directives Directive None Recorded Payers Insurance Date Sequence Insurance Name Policy Number Policy Potter Covered Member ID Potter Member ID Guarantor Name 04/23/2024 1 [place] [facility] (MEDICARE REPLACEMENT/ ADVANTAGE - HMO) [id number] Abdirizak Zacarias [id number] Abdirizak Zacarias 04/23/2024 2 [facility] (MEDICAID HMO) Abdirizak Zacarias [id number] Abdirizak Zacarias 12/24/2022 1 [place] Abdirizak Zacarias [id number] Abdirizak Zacarias Notes Date Note Type Note Provider Name and Address Organization Details Recorded Time 12/24/2022 text/html Patient returns to clinic today with complaints of 3 month history of diarrhea. Experiencing 2-3 loose bowel movements per day with urgency as well as episodes of black stool. He describes lower abdominal cramping that resolves with bowel movements. He was started on Metformin in July and was also recently prescribed Ozempic however discontinued after 6 weeks. He continues Pantoprazole with occasional uncontrolled GERD symptoms and occasional episodes of RUQ pain. He continues to follow with Cardiology, Dr. Elena. Claribel Price NP [address] [place] [address], [address], [place], [address], [facility] & [place] 12/31/2022 22:25:07
== END 2025-02-10 23:59 | disposition home or self-care (01) ==
LOC: LAB.DROPOF 02-13 10:50
PROVIDERS: PCP Nurse Practitioner Family; Visit Provider Nurse Practitioner Family
DX: E03.9 Hypothyroidism, unspecified (principal); E11.9 Type 2 diabetes mellitus without complications
CPT/HCPCS: 80053; 80061; 82043; 82570; 83036; 84443; 85025